=== PATIENT | male | born 1950 | race Caucasian/White ===

== ENCOUNTER 2021-10-27 11:34 | Outpatient (CLI) | payer MEDICARE, MEDICAID, SELFPAY ==
--- NOTE | 2021-10-27 11:15 | DI.RAD_ITS ---
Exam(s) XR SHOULDER LT COMPLETE 2+V EXAM: XR SHOULDER LT COMPLETE 2+V CLINICAL HISTORY: LEFT SHOULDER PAIN. TECHNIQUE: 2D digital imaging was performed of the left shoulder. Two images were obtained. AP and axillary views were obtained. COMPARISON: No exams were available for comparison FINDINGS: BONES: No acute fracture is present. No bony destructive lesion is seen. JOINTS: No dislocation present. There are mild degenerative changes at the acromioclavicular joint. SOFT TISSUE: Normal. IMPRESSION: Degenerative changes in the shoulder. DATA REPOSITORY: RADIATION DOSE DELIVERED:
--- NOTE | 2021-10-27 11:15 | DI.RAD_ITS ---
Exam(s) XR SHOULDER RT COMPLETE 2+V EXAM: XR SHOULDER RT COMPLETE 2+V CLINICAL HISTORY: RIGHT SHOULDER PAIN. TECHNIQUE: 2D digital imaging was performed of the right shoulder. Two images were obtained. AP an d axillary views were obtained. COMPARISON: No exams were available for comparison FINDINGS: BONES: No acute fracture is present. No bony destructive lesion is seen. JOINTS: No dislocation present. Mild to moderate degenerative changes are seen at the AC joint. Ther e is mild spurring at the inferior aspect of the glenoid. SOFT TISSUE: Normal. IMPRESSION: Degenerative changes of the shoulder. DATA REPOSITORY: RADIATION DOSE DELIVERED:
== END 2021-10-27 11:35 | disposition home or self-care (01) ==
LOC: DIORS 11:35
PROVIDERS: PCP Family Medicine; Visit Provider Student in an Organized Health Care Education/Training Program
DX: S46.011A Strain of muscle(s) and tendon(s) of the rotator cuff of right shoulder, initial encounter; X58.XXXA Exposure to other specified factors, initial encounter; M75.51 Bursitis of right shoulder; M75.21 Bicipital tendinitis, right shoulder
CPT/HCPCS: 99203; 99204; 73030

== ENCOUNTER → 2021-11-18 00:45 | Outpatient (CLI) | payer MEDICARE, MEDICAID, SELFPAY ==
--- NOTE | 2021-11-18 07:00 | DI.MRI_ITS ---
Exam(s) MR UPPER JOINT RT WO EXAM: MR UPPER JOINT RT WO CLINICAL HISTORY: PAIN,traumatic tear rt rotator cuff, [id number]. TECHNIQUE: Multiplanar multisequence MRI was performed. COMPARISON: Plain films 27 October 2021 FINDINGS: Bones: There is no fracture or contusion pattern. The acromioclavicular joint shows spurring and fluid with apparent impingement on the supraspinatus muscle tendon junction. There is a small amount of fluid i n the subacromial subdeltoid bursa. Minimal fluid in the subcoracoid bursa. Rotator Cuff: The supraspinatus tendon shows high signal distally consistent with a partial tear. The infraspinatu s tendon appears intact. The subscapularis and teres minor are normal. Is no significant muscle atro phy. Labrum and biceps anchor: The biceps tendon is located. The anchor is well maintained. The labrum is grossly normal.. IMPRESSION: Degenerative changes of the AC joint with apparent impingement. Partial tear of the supraspinatus te ndon. DATA REPOSITORY:
== END ==
PROVIDERS: PCP Family Medicine; Visit Provider Student in an Organized Health Care Education/Training Program
DX: S46.011A Strain of muscle(s) and tendon(s) of the rotator cuff of right shoulder, initial encounter (principal); M19.011 Primary osteoarthritis, right shoulder; X58.XXXA Exposure to other specified factors, initial encounter
CPT/HCPCS: 73221

== ENCOUNTER → 2021-11-24 10:52 | Outpatient (BNVA) | payer MEDICARE, MEDICAID, SELFPAY | PROVIDERS: PCP Family Medicine; Referring Provider Family Medicine; Visit Provider Student in an Organized Health Care Education/Training Program | DX: M75.21 Bicipital tendinitis, right shoulder (principal) | CPT/HCPCS: 20610; 99214; J1030 ==

== ENCOUNTER 2022-03-02 16:07 | Outpatient (REF) | payer MEDICARE, MEDICAID, SELFPAY | END 2022-03-02 16:08 | disposition home or self-care (01) | LOC: LBN 16:07 | PROVIDERS: PCP Family Medicine; Visit Provider Family Medicine | DX: R30.0 Dysuria (principal) | CPT/HCPCS: 87086 ==

== ENCOUNTER → 2022-03-09 02:37 | Outpatient (CLI) | payer MEDICARE, MEDICAID, SELFPAY ==
--- NOTE | 2022-03-09 07:45 | DI.US_ITS ---
Exam(s) US HERNIA EXAM: US HERNIA CLINICAL HISTORY: RLQ pain, ? hernia, r10.9. TECHNIQUE: Ultrasound was performed using standard protocol. COMPARISON: No exams were available for comparison FINDINGS: Sonographic assessment utilizing grayscale and color Doppler imaging was performed and targeted to th e area of clinical concern. There does appear to be a small abdominal wall hernia. A CT scan may be considered for further evalu ation. IMPRESSION: DATA REPOSITORY:
== END ==
PROVIDERS: PCP Family Medicine; Visit Provider Family Medicine
DX: R10.9 Unspecified abdominal pain (principal); R93.5 Abnormal findings on diagnostic imaging of other abdominal regions, including retroperitoneum
CPT/HCPCS: 76857

== ENCOUNTER → 2022-04-05 12:51 | Outpatient (BNVA) | payer MEDICARE, MEDICAID, SELFPAY | PROVIDERS: PCP Family Medicine; Referring Provider Family Medicine; Visit Provider Surgery | DX: K43.9 Ventral hernia without obstruction or gangrene (principal) | CPT/HCPCS: 99214 ==

== ENCOUNTER → 2022-04-09 01:01 | Outpatient (CLI) | payer MEDICARE, MEDICAID, SELFPAY ==
--- OUTSIDE RECORDS SUMMARY | 2022-04-09 01:03 | XMS_ITS | CCD ---
:1950 Author Care Team Providers Name Role Phone MAMTA MANCERA Attending Physician Unavailable MAMTA MANCERA Rounding (Secondary) Physician Unavailab le Vital Signs Unknown or Not Available. Allergies Allergy Code Allergy Type Reaction Status DOXYCYCLINE 3640 Drug allergy ITCHING Active NITROSTAT 20240606 Drug allergy SEVERE GLASS Active DEXILANT 197405 Drug allergy NAUSEA; INC STOMACH Active ACID PRIMIDONE 8691 Drug allergy SEVERE DIARRHEA Active HIBICLENS 304014 Drug allergy THROAT CLOSES Active YELLOW JACKETS {Clinical 0 Allergy to substance ARMS SWE LL Active monitoring unavailable} CIPROFLOXACIN 2551 Drug allergy DIARRHEA; C DIFF Active GABAPENTIN 45451 Drug allergy SHAKING, CONFUSION Active BACTRIM 387721 Drug allergy NAUSEA/VOMITING; Active Diarrhea OMEPRAZOLE 7646 Drug allergy ACID REFLUX Active MYRBETRIQ 5012748 Drug allergy ELEVATED BP Active SINEQUAN {Clinical 0 Drug allergy TONGUE SWELLING Active monitoring unavailable} PCN (penicillin) 0 Drug allergy ANAL SWELLING, Active RECEIVED CEFAZOLIN 01/17 DOXEPIN 3638 Drug allergy SWELLING; SWOLLEN Active TONGUE THORAZINE {Clinical 0 Drug allergy SWELLING; TONGUE Act arya monitoring unavailable} ROLLS BACK LIKE T RYING TO SWALLOW CHLORHEXIDINE 2358 Drug allergy Anaphylaxis Active ANDROGEL 025009 Drug allergy SKIN BURNING; Rash Active CHLORINE 5246793 Drug allergy Anaphylaxis Active FLONASE 72317 Drug allergy SORE THROAT Active Procedures Unknown or Not Available. History of Immunizations Unknown or Not Available. Problems Unknown or Not Available. Results Unknown or Not Available. Active Medications Medication Code Dose Units Frequency Route Modification Start Date/Time Act Total 83791234556 1 SPRAY 1 SPRAY 5 X OROMUCOSAL Care Dry DAILY 08:19 Mouth 0.02% NEEDED Oromucosal Solution Prescription Detail 1 SPRAY OROMUCOSAL 1 SPRAY 5 X DAILY NEEDED Artificial Tears 330762 1 DROP NEEDED DAILY OPTHALMIC 11/17/2018 08:19 1.4% Ophthalmic Solution Prescription Detail 1 DROP OPTHALMIC NEEDED DAILY Cephalexin 500MG 120000 1000 MILLIGRAMS TWICE A DAY ORAL 11/17/2018 08:19 Oral Capsule Prescription Detail TAKE 1000 MILLIGRAMS ORAL TW ICE A DAY clonazePAM 0.5MG 687468 0.5 MILLIGRAMS NEEDED AT ORAL 11/17/2018 08:19 Oral Tablet BEDTIME Prescription Detail TAKE 0.5 MILLIGRAMS ORAL NEEDED AT BEDTIME Finasteride 5MG Oral Tablet 778598 5 MILLIGRAMS DAILY ORAL 11/17/2018 08:19 Prescription Detail TAKE 5 MILLIGRAMS ORAL DAILY Lexapro 20MG Oral 643557 20 MILLIGRAMS EVERY EVENING ORAL 11/17/2018 08:19 Tablet Prescription Detail TAKE 20 MILLIGRAMS ORAL EVER Y EVENING traZODone hydrochloride 624467 25 MILLIGRAMS DAILY ORAL 11/17/2018 08:19 50MG Oral Tablet Prescription Detail TAKE 25 MILLIGRAMS ORAL STEPHEN Y Vitamin B Complex 06540603434 1 TABLET TWICE A DAY ORAL 11/17/2018 08:19 Oral Tablet Prescription Detail TAKE 1 TABLET ORAL TWICE A D AY Vitamin D 5000 IU Oral 933559 6959 IU EVERY EVENING ORAL 11/17/2018 08:19 Tablet Prescription Detail TAKE 5000 IU ORAL EVERY EVEN ING Vitamin D 5000 IU Oral Tablet 181739 49532 IU DAILY ORAL 11/17/2018 08:19 Prescription Detail TAKE 43467 IU ORAL DAILY Calcium/Magnesium/Zinc 1000 90531411501 1 EACH TWICE A DAY ORAL 01/20/2018 MG-500 MG-50 MG Oral Tablet 11:44 Prescription Detail TAKE 1 EACH ORAL TWICE A DAY SUMAtriptan Succinate 416467 25 MILLIGRAMS NEEDED ORAL 01/20/2018 11:44 25MG Oral Tablet Prescription Detail TAKE 25 MILLIGRAMS ORAL N EEDED Zinc 50 MG Oral Tablet 47543721910 50 MG DAILY ORAL 01/20/2018 11:44 Prescription Detail TAKE 50 MG ORAL DAILY Medications Administered During Visit Unknown or Not Available. 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 Discharge Instructions You were admitted to [facility] on 03/30/2022 14:13 with a principal diagnosis of Lesion of plantar nerve, right lower limb You were discharged from [facility] on 03/30/2022 00:00 Should you have any questions prior to d ischarge, please contact a member of your healthcare team. If you have left the ho spital and have any questions, please contact your primary care physician. Chief Complaint and Reason For Visit Unknown or Not Available. Function Status Unknown or Not Available. Plan of Care Unknown or Not Available. Referral/Transition of Care Unknown or Not Available.
--- OUTSIDE RECORDS SUMMARY | 2022-04-09 01:03 | XMS_ITS | CCD ---
:1950 Author Care Team Providers Name Role Phone SHAYNE AYERS Attending Physician Unavailable SHAYNE AYERS Rounding (Secondary) Physician Unavailab le Vital Signs Unknown or Not Available. Allergies Allergy Code Allergy Type Reaction Status DOXYCYCLINE 3640 Drug allergy ITCHING Active NITROSTAT 20240606 Drug allergy SEVERE GLASS Active DEXILANT 529336 Drug allergy NAUSEA; INC STOMACH Active ACID PRIMIDONE 8691 Drug allergy SEVERE DIARRHEA Active HIBICLENS 738614 Drug allergy THROAT CLOSES Active YELLOW JACKETS {Clinical 0 Allergy to substance ARMS SWE LL Active monitoring unavailable} CIPROFLOXACIN 2551 Drug allergy DIARRHEA; C DIFF Active GABAPENTIN 92329 Drug allergy SHAKING, CONFUSION Active BACTRIM 800787 Drug allergy NAUSEA/VOMITING; Active Diarrhea OMEPRAZOLE 7646 Drug allergy ACID REFLUX Active MYRBETRIQ 1418386 Drug allergy ELEVATED BP Active SINEQUAN {Clinical 0 Drug allergy TONGUE SWELLING Active monitoring unavailable} PCN (penicillin) 0 Drug allergy ANAL SWELLING, Active RECEIVED CEFAZOLIN 01/17 DOXEPIN 3638 Drug allergy SWELLING; SWOLLEN Active TONGUE THORAZINE {Clinical 0 Drug allergy SWELLING; TONGUE Act arya monitoring unavailable} ROLLS BACK LIKE T RYING TO SWALLOW CHLORHEXIDINE 2358 Drug allergy Anaphylaxis Active ANDROGEL 332578 Drug allergy SKIN BURNING; Rash Active CHLORINE 1489266 Drug allergy Anaphylaxis Active FLONASE 15016 Drug allergy SORE THROAT Active Procedures Unknown or Not Available. History of Immunizations Unknown or Not Available. Problems Unknown or Not Available. Results Unknown or Not Available. Active Medications Medication Code Dose Units Frequency Route Modification Start Date/Time Act Total 64825194430 1 SPRAY 1 SPRAY 5 X OROMUCOSAL Care Dry DAILY 08:19 Mouth 0.02% NEEDED Oromucosal Solution Prescription Detail 1 SPRAY OROMUCOSAL 1 SPRAY 5 X DAILY NEEDED Artificial Tears 366192 1 DROP NEEDED DAILY OPTHALMIC 11/17/2018 08:19 1.4% Ophthalmic Solution Prescription Detail 1 DROP OPTHALMIC NEEDED DAILY Cephalexin 500MG 178000 9635 MILLIGRAMS TWICE A DAY ORAL 11/17/2018 08:19 Oral Capsule Prescription Detail TAKE 1000 MILLIGRAMS ORAL TW ICE A DAY clonazePAM 0.5MG 825184 0.5 MILLIGRAMS NEEDED AT ORAL 11/17/2018 08:19 Oral Tablet BEDTIME Prescription Detail TAKE 0.5 MILLIGRAMS ORAL NEEDED AT BEDTIME Finasteride 5MG Oral Tablet 577597 5 MILLIGRAMS DAILY ORAL 11/17/2018 08:19 Prescription Detail TAKE 5 MILLIGRAMS ORAL DAILY Lexapro 20MG Oral 560143 20 MILLIGRAMS EVERY EVENING ORAL 11/17/2018 08:19 Tablet Prescription Detail TAKE 20 MILLIGRAMS ORAL EVER Y EVENING traZODone hydrochloride 321867 25 MILLIGRAMS DAILY ORAL 11/17/2018 08:19 50MG Oral Tablet Prescription Detail TAKE 25 MILLIGRAMS ORAL STEPHEN Y Vitamin B Complex 55187634188 1 TABLET TWICE A DAY ORAL 11/17/2018 08:19 Oral Tablet Prescription Detail TAKE 1 TABLET ORAL TWICE A D AY Vitamin D 5000 IU Oral 862893 8747 IU EVERY EVENING ORAL 11/17/2018 08:19 Tablet Prescription Detail TAKE 5000 IU ORAL EVERY EVEN ING Vitamin D 5000 IU Oral Tablet 518767 65240 IU DAILY ORAL 11/17/2018 08:19 Prescription Detail TAKE 91687 IU ORAL DAILY Calcium/Magnesium/Zinc 1000 93455395616 1 EACH TWICE A DAY ORAL 01/20/2018 MG-500 MG-50 MG Oral Tablet 11:44 Prescription Detail TAKE 1 EACH ORAL TWICE A DAY SUMAtriptan Succinate 545653 25 MILLIGRAMS NEEDED ORAL 01/20/2018 11:44 25MG Oral Tablet Prescription Detail TAKE 25 MILLIGRAMS ORAL N EEDED Zinc 50 MG Oral Tablet 20175152165 50 MG DAILY ORAL 01/20/2018 11:44 Prescription Detail TAKE 50 MG ORAL DAILY Medications Administered During Visit Unknown or Not Available. Encounters Encounter Diagnosis Diagnosis Code Start Date Pain in right foot [id number] 03/30/2021 Social History Smoking Status Code Start Date End Date Never smoker [id number] Patient Decision Aids Unknown or Not Available. Discharge Instructions You were admitted to [facility] on 03/30/2021 08:16 with a principal diagnosis of Pain in right foot You were discharged from [facility] on 03/30/2021 00:00 Should you have any questions prior [...]
--- OUTSIDE RECORDS SUMMARY | 2022-04-09 01:04 | XMS_ITS | CCD ---
:1950 Author Care Team Providers Name Role Phone JEFMADIE Attending Physician Unavailable Vital Signs Unknown or Not Available. Allergies Allergy Code Allergy Type Reaction Status DOXYCYCLINE 3640 Drug allergy ITCHING Active NITROSTAT 20240606 Drug allergy SEVERE GLASS Active DEXILANT 381917 Drug allergy NAUSEA; INC STOMACH Active ACID PRIMIDONE 8691 Drug allergy SEVERE DIARRHEA Active HIBICLENS 253913 Drug allergy THROAT CLOSES Active YELLOW JACKETS {Clinical 0 Allergy to substance ARMS SWE LL Active monitoring unavailable} CIPROFLOXACIN 2551 Drug allergy DIARRHEA; C DIFF Active GABAPENTIN 62885 Drug allergy SHAKING, CONFUSION Active BACTRIM 027643 Drug allergy NAUSEA/VOMITING; Active Diarrhea OMEPRAZOLE 7646 Drug allergy ACID REFLUX Active MYRBETRIQ 4386298 Drug allergy ELEVATED BP Active SINEQUAN {Clinical 0 Drug allergy TONGUE SWELLING Active monitoring unavailable} PCN (penicillin) 0 Drug allergy ANAL SWELLING, Active RECEIVED CEFAZOLIN 01/17 DOXEPIN 3638 Drug allergy SWELLING; SWOLLEN Active TONGUE THORAZINE {Clinical 0 Drug allergy SWELLING; TONGUE Act arya monitoring unavailable} ROLLS BACK LIKE T RYING TO SWALLOW CHLORHEXIDINE 2358 Drug allergy Anaphylaxis Active ANDROGEL 185665 Drug allergy SKIN BURNING; Rash Active CHLORINE 9770200 Drug allergy Anaphylaxis Active FLONASE 61583 Drug allergy SORE THROAT Active Procedures Unknown or Not Available. History of Immunizations Unknown or Not Available. Problems Unknown or Not Available. Results Unknown or Not Available. Active Medications Medication Code Dose Units Frequency Route Modification Start Date/Time Act Total 33835609963 1 SPRAY 1 SPRAY 5 X OROMUCOSAL Care Dry DAILY 08:19 Mouth 0.02% NEEDED Oromucosal Solution Prescription Detail 1 SPRAY OROMUCOSAL 1 SPRAY 5 X DAILY NEEDED Artificial Tears 344663 1 DROP NEEDED DAILY OPTHALMIC 11/17/2018 08:19 1.4% Ophthalmic Solution Prescription Detail 1 DROP OPTHALMIC NEEDED DAILY Cephalexin 500MG 456311 6774 MILLIGRAMS TWICE A DAY ORAL 11/17/2018 08:19 Oral Capsule Prescription Detail TAKE 1000 MILLIGRAMS ORAL TW ICE A DAY clonazePAM 0.5MG 558225 0.5 MILLIGRAMS NEEDED AT ORAL 11/17/2018 08:19 Oral Tablet BEDTIME Prescription Detail TAKE 0.5 MILLIGRAMS ORAL NEEDED AT BEDTIME Finasteride 5MG Oral Tablet 716076 5 MILLIGRAMS DAILY ORAL 11/17/2018 08:19 Prescription Detail TAKE 5 MILLIGRAMS ORAL DAILY Lexapro 20MG Oral 528581 20 MILLIGRAMS EVERY EVENING ORAL 11/17/2018 08:19 Tablet Prescription Detail TAKE 20 MILLIGRAMS ORAL EVER Y EVENING traZODone hydrochloride 270345 25 MILLIGRAMS DAILY ORAL 11/17/2018 08:19 50MG Oral Tablet Prescription Detail TAKE 25 MILLIGRAMS ORAL STEPHEN Y Vitamin B Complex 03972530947 1 TABLET TWICE A DAY ORAL 11/17/2018 08:19 Oral Tablet Prescription Detail TAKE 1 TABLET ORAL TWICE A D AY Vitamin D 5000 IU Oral 602664 2897 IU EVERY EVENING ORAL 11/17/2018 08:19 Tablet Prescription Detail TAKE 5000 IU ORAL EVERY EVEN ING Vitamin D 5000 IU Oral Tablet 311054 25687 IU DAILY ORAL 11/17/2018 08:19 Prescription Detail TAKE 44236 IU ORAL DAILY Calcium/Magnesium/Zinc 1000 41352228479 1 EACH TWICE A DAY ORAL 01/20/2018 MG-500 MG-50 MG Oral Tablet 11:44 Prescription Detail TAKE 1 EACH ORAL TWICE A DAY SUMAtriptan Succinate 610356 25 MILLIGRAMS NEEDED ORAL 01/20/2018 11:44 25MG Oral Tablet Prescription Detail TAKE 25 MILLIGRAMS ORAL N EEDED Zinc 50 MG Oral Tablet 85043716787 50 MG DAILY ORAL 01/20/2018 11:44 Prescription Detail TAKE 50 MG ORAL DAILY Medications Administered During Visit Unknown or Not Available. Encounters Encounter Diagnosis Diagnosis Code Start Date Pain in thoracic spine [id number] 06/11/2021 Social History Smoking Status Code Start Date End Date Never smoker [id number] Patient Decision Aids Unknown or Not Available. Discharge Instructions You were admitted to [facility] on 06/11/2021 11:31 with a principal diagnosis of Pain in thoracic spine You were discharged from [facility] on 06/11/2021 11:31 Should you have any questions prior to d ischarge, please contact a member of your healthcare team. If you have left the spital and have any questions, please contact your primary care physician. Chief Complaint and Reason For Visit Unknown or Not Available. Function Status Unknown or Not Available. Plan of Care Unknown or Not Available. Referral/Transition of Care Unknown or Not Available.
--- OUTSIDE RECORDS SUMMARY | 2022-04-09 01:04 | XMS_ITS | CCD ---
:1950 Author Care Team Providers Name Role Phone MAMTA MANCERA Attending Physician Unavailable MAMTA MANCERA Rounding (Secondary) Physician Unavailab le Vital Signs Unknown or Not Available. Allergies Allergy Code Allergy Type Reaction Status DOXYCYCLINE 3640 Drug allergy ITCHING Active NITROSTAT 20240606 Drug allergy SEVERE GLASS Active DEXILANT 970479 Drug allergy NAUSEA; INC STOMACH Active ACID PRIMIDONE 8691 Drug allergy SEVERE DIARRHEA Active HIBICLENS 076124 Drug allergy THROAT CLOSES Active YELLOW JACKETS {Clinical 0 Allergy to substance ARMS SWE LL Active monitoring unavailable} CIPROFLOXACIN 2551 Drug allergy DIARRHEA; C DIFF Active GABAPENTIN 13439 Drug allergy SHAKING, CONFUSION Active BACTRIM 882799 Drug allergy NAUSEA/VOMITING; Active Diarrhea OMEPRAZOLE 7646 Drug allergy ACID REFLUX Active MYRBETRIQ 0208605 Drug allergy ELEVATED BP Active SINEQUAN {Clinical 0 Drug allergy TONGUE SWELLING Active monitoring unavailable} PCN (penicillin) 0 Drug allergy ANAL SWELLING, Active RECEIVED CEFAZOLIN 01/17 DOXEPIN 3638 Drug allergy SWELLING; SWOLLEN Active TONGUE THORAZINE {Clinical 0 Drug allergy SWELLING; TONGUE Act arya monitoring unavailable} ROLLS BACK LIKE T RYING TO SWALLOW CHLORHEXIDINE 2358 Drug allergy Anaphylaxis Active ANDROGEL 869549 Drug allergy SKIN BURNING; Rash Active CHLORINE 1951454 Drug allergy Anaphylaxis Active FLONASE 24725 Drug allergy SORE THROAT Active Procedures Unknown or Not Available. History of Immunizations Unknown or Not Available. Problems Unknown or Not Available. Results Unknown or Not Available. Active Medications Medication Code Dose Units Frequency Route Modification Start Date/Time Act Total 01329687721 1 SPRAY 1 SPRAY 5 X OROMUCOSAL Care Dry DAILY 08:19 Mouth 0.02% NEEDED Oromucosal Solution Prescription Detail 1 SPRAY OROMUCOSAL 1 SPRAY 5 X DAILY NEEDED Artificial Tears 948501 1 DROP NEEDED DAILY OPTHALMIC 11/17/2018 08:19 1.4% Ophthalmic Solution Prescription Detail 1 DROP OPTHALMIC NEEDED DAILY Cephalexin 500MG 595175 1977 MILLIGRAMS TWICE A DAY ORAL 11/17/2018 08:19 Oral Capsule Prescription Detail TAKE 1000 MILLIGRAMS ORAL TW ICE A DAY clonazePAM 0.5MG 558200 0.5 MILLIGRAMS NEEDED AT ORAL 11/17/2018 08:19 Oral Tablet BEDTIME Prescription Detail TAKE 0.5 MILLIGRAMS ORAL NEEDED AT BEDTIME Finasteride 5MG Oral Tablet 689538 5 MILLIGRAMS DAILY ORAL 11/17/2018 08:19 Prescription Detail TAKE 5 MILLIGRAMS ORAL DAILY Lexapro 20MG Oral 104377 20 MILLIGRAMS EVERY EVENING ORAL 11/17/2018 08:19 Tablet Prescription Detail TAKE 20 MILLIGRAMS ORAL EVER Y EVENING traZODone hydrochloride 308709 25 MILLIGRAMS DAILY ORAL 11/17/2018 08:19 50MG Oral Tablet Prescription Detail TAKE 25 MILLIGRAMS ORAL STEPHEN Y Vitamin B Complex 75903588087 1 TABLET TWICE A DAY ORAL 11/17/2018 08:19 Oral Tablet Prescription Detail TAKE 1 TABLET ORAL TWICE A D AY Vitamin D 5000 IU Oral 032068 7084 IU EVERY EVENING ORAL 11/17/2018 08:19 Tablet Prescription Detail TAKE 5000 IU ORAL EVERY EVEN ING Vitamin D 5000 IU Oral Tablet 087503 54818 IU DAILY ORAL 11/17/2018 08:19 Prescription Detail TAKE 25530 IU ORAL DAILY Calcium/Magnesium/Zinc 1000 39735567059 1 EACH TWICE A DAY ORAL 01/20/2018 MG-500 MG-50 MG Oral Tablet 11:44 Prescription Detail TAKE 1 EACH ORAL TWICE A DAY SUMAtriptan Succinate 171261 25 MILLIGRAMS NEEDED ORAL 01/20/2018 11:44 25MG Oral Tablet Prescription Detail TAKE 25 MILLIGRAMS ORAL N EEDED Zinc 50 MG Oral Tablet 97868130817 50 MG DAILY ORAL 01/20/2018 11:44 Prescription Detail TAKE 50 MG ORAL DAILY Medications Administered During Visit Unknown or Not Available. 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 Discharge Instructions You were admitted to [facility] on 10/26/2021 14:39 with a principal diagnosis of Lesion of plantar nerve, right lower limb You were discharged from [facility] on 10/26/2021 00:00 Should you have any questions prior [...]
--- OUTSIDE RECORDS SUMMARY | 2022-04-09 01:04 | XMS_ITS | CCD ---
:1950 Author Care Team Providers Name Role Phone MAMTA MANCERA Attending Physician Unavailable MAMTA MANCERA Rounding (Secondary) Physician Unavailab le Vital Signs Unknown or Not Available. Allergies Allergy Code Allergy Type Reaction Status DOXYCYCLINE 3640 Drug allergy ITCHING Active NITROSTAT [id number] Drug allergy SEVERE GLASS Active DEXILANT 251158 Drug allergy NAUSEA; INC STOMACH Active ACID PRIMIDONE 8691 Drug allergy SEVERE DIARRHEA Active HIBICLENS 258044 Drug allergy THROAT CLOSES Active YELLOW JACKETS {Clinical 0 Allergy to substance ARMS SWE LL Active monitoring unavailable} CIPROFLOXACIN 2551 Drug allergy DIARRHEA; C DIFF Active GABAPENTIN 82474 Drug allergy SHAKING, CONFUSION Active BACTRIM 778975 Drug allergy NAUSEA/VOMITING; Active Diarrhea OMEPRAZOLE 7646 Drug allergy ACID REFLUX Active MYRBETRIQ 6887066 Drug allergy ELEVATED BP Active SINEQUAN {Clinical 0 Drug allergy TONGUE SWELLING Active monitoring unavailable} PCN (penicillin) 0 Drug allergy ANAL SWELLING, Active RECEIVED CEFAZOLIN 01/17 DOXEPIN 3638 Drug allergy SWELLING; SWOLLEN Active TONGUE THORAZINE {Clinical 0 Drug allergy SWELLING; TONGUE Act arya monitoring unavailable} ROLLS BACK LIKE T RYING TO SWALLOW CHLORHEXIDINE 2358 Drug allergy Anaphylaxis Active ANDROGEL 409722 Drug allergy SKIN BURNING; Rash Active CHLORINE 8724367 Drug allergy Anaphylaxis Active FLONASE 95505 Drug allergy SORE THROAT Active Procedures Unknown or Not Available. History of Immunizations Unknown or Not Available. Problems Unknown or Not Available. Results Unknown or Not Available. Active Medications Medication Code Dose Units Frequency Route Modification Start Date/Time Act Total [id number] 1 SPRAY 1 SPRAY 5 X OROMUCOSAL Care Dry DAILY 08:19 Mouth 0.02% NEEDED Oromucosal Solution Prescription Detail 1 SPRAY OROMUCOSAL 1 SPRAY 5 X DAILY NEEDED Artificial Tears 878775 1 DROP NEEDED DAILY OPTHALMIC 11/17/2018 08:19 1.4% Ophthalmic Solution Prescription Detail 1 DROP OPTHALMIC NEEDED DAILY Cephalexin 500MG 682749 3701 MILLIGRAMS TWICE A DAY ORAL 11/17/2018 08:19 Oral Capsule Prescription Detail TAKE 1000 MILLIGRAMS ORAL TW ICE A DAY clonazePAM 0.5MG 252017 0.5 MILLIGRAMS NEEDED AT ORAL 11/17/2018 08:19 Oral Tablet BEDTIME Prescription Detail TAKE 0.5 MILLIGRAMS ORAL NEEDED AT BEDTIME Finasteride 5MG Oral Tablet 102142 5 MILLIGRAMS DAILY ORAL 11/17/2018 08:19 Prescription Detail TAKE 5 MILLIGRAMS ORAL DAILY Lexapro 20MG Oral 283706 20 MILLIGRAMS EVERY EVENING ORAL 11/17/2018 08:19 Tablet Prescription Detail TAKE 20 MILLIGRAMS ORAL EVER Y EVENING traZODone hydrochloride 260930 25 MILLIGRAMS DAILY ORAL 11/17/2018 08:19 50MG Oral Tablet Prescription Detail TAKE 25 MILLIGRAMS ORAL STEPHEN Y Vitamin B Complex 67892972392 1 TABLET TWICE A DAY ORAL 11/17/2018 08:19 Oral Tablet Prescription Detail TAKE 1 TABLET ORAL TWICE A D AY Vitamin D 5000 IU Oral 894948 7239 IU EVERY EVENING ORAL 11/17/2018 08:19 Tablet Prescription Detail TAKE 5000 IU ORAL EVERY EVEN ING Vitamin D 5000 IU Oral Tablet 000537 13799 IU DAILY ORAL 11/17/2018 08:19 Prescription Detail TAKE 20401 IU ORAL DAILY Calcium/Magnesium/Zinc 1000 52060812852 1 EACH TWICE A DAY ORAL 01/20/2018 MG-500 MG-50 MG Oral Tablet 11:44 Prescription Detail TAKE 1 EACH ORAL TWICE A DAY SUMAtriptan Succinate 146399 25 MILLIGRAMS NEEDED ORAL 01/20/2018 11:44 25MG Oral Tablet Prescription Detail TAKE 25 MILLIGRAMS ORAL N EEDED Zinc 50 MG Oral Tablet 36950010528 50 MG DAILY ORAL 01/20/2018 11:44 Prescription Detail TAKE 50 MG ORAL DAILY Medications Administered During Visit Unknown or Not Available. Encounters Encounter Diagnosis Diagnosis Code Start Date Refusal of treatment by patient [id number] 11/24/19 22 Social History Smoking Status Code Start Date End Date Never smoker [id number] Patient Decision Aids Unknown or Not Available. Discharge Instructions You were admitted to [facility] on 11/23/2021 09:22 with a principal diagnosis of Procedure and treatment not carried o mn because of patient's decision for other reasons You were discharged from [facility] on 11/23/2021 10:23 Should you have any questions prior to [...]
[2022-04-09 09:33] LABS: Anion Gap 7.7 mmol/L (3-11); BUN 19 mg/dL (7-18); CO2 28.3 mmol/L (21.0-32.0); CREATININE 0.9 mg/dL (0.70-1.30); Calcium 9.1 mg/dL (8.5-10.1); Chloride 103 mmol/L (98-107); Estimated GFR 91.88 (mL/min/1.73m2); Glucose 93 mg/dL (74-106); Sodium 139 mmol/L (136-145)
--- NOTE | 2022-04-09 10:17 | DI.CT_ITS ---
Exam(s) CT ABDOMEN PELVIS W EXAM: CT ABDOMEN PELVIS W CLINICAL HISTORY: ABD WALL hernia, pre-operative planning,K43.9 TECHNIQUE: Imaging Protocol: Axial computed tomography images with coronal and sagittal reformatted images were created and reviewed CONTRAST MATERIAL: Intravenous: Omnipaque 350 Contrast volume:100 mL Oral: Yes COMPARISON: US US HERNIA from 03/09/2022 FINDINGS: ABDOMEN: Lung Bases: Normal where visualized. Liver: Normal density. Tiny hypodensities are scattered throughout the liver. They are too small for further characterization but are most suggestive of a cyst. No suspicious hepatic masses are seen. Portal, Superior Mesenteric, and Splenic Veins: Unremarkable. Gallbladder and Biliary Tract: No radiodense calculus or dilation. Pancreas: Normal density, no abnormal calcifications or inflammatory process. Spleen: Normal. Adrenals: No masses seen. Kidneys: Normal size, contour and axis. No radiodense stones or obstructive uropathy. There are sever al tiny hypodensities in the renal cortices bilaterally. They are too small for further characteriza tion but likely reflect small cysts. Abdominal Aorta: Abdominal portion non-dilated. Atherosclerosis is present. Bowel: No obstruction or bowel wall thickening. There is no evidence of appendicitis. There is diver ticulosis seen in the colon, but no evidence of acute diverticulitis. Postsurgical changes are seen at the gastroesophageal junction. Peritoneal Cavity: No ascites, collection or mesenteric inflammatory response. No free air. Lymph Nodes: Within normal limits. Bones: Within normal limits for the patient's age. Soft Tissues: No definite anterior abdominal wall hernia is appreciated. Postsurgical changes are see n in the anterior abdominal wall. PELVIS: Bladder: Symmetric distention, no gross wall thickening. There are calcifications seen in the depende nt portion of the urinary bladder suspicious for bladder stone. Reproductive Organs: The prostate gland is enlarged and impinges upon the base of the urinary bladder . There is a nodular 1.3 x 0.9 cm protrusion arising from the right lateral aspect of the superior bl adder. A neoplasm cannot be excluded. Lymph Nodes: Within normal limits. Bones: Within normal limits for the patient's age. IMPRESSION: 1. No definite anterior abdominal wall hernia. Postsurgical changes in the anterior abdominal wall. 2. Enlarged prostate gland. There is a 1.3 x 0.9 cm protrusion from the superior and lateral aspect o f the prostate gland on the right. And neoplasm cannot be excluded. RADIATION DOSE DELIVERED: 964.21mGy.cm Total DLP DATA REPOSITORY: All CT scans at this facility are submitted to the National Radiology Data Registry (NRDR) Dose Index Registry (DIR) with the [employer] (A[employer]). RADIATION OPTIMIZATION: All CT scans at this facility use at least one of these dose optimization te chniques: automated exposure control; mA and/or kV adjustment per patient size (includes targeted exa ms where dose is matched to clinical indication); or iterative reconstruction.
[2022-04-09] MEDS: Omnipaque 350 MG/ML 100 ML BTL IJ (10:37)
== END ==
PROVIDERS: PCP Family Medicine; Visit Provider Surgery
DX: K43.9 Ventral hernia without obstruction or gangrene (principal)
CPT/HCPCS: 80048; 74177; J3490

== ENCOUNTER → 2022-12-24 00:20 | Outpatient (CLI) | payer MEDICARE, MEDICAID, SELFPAY ==
--- NOTE | 2022-12-24 | DI.RAD_ITS ---
Exam(s) RF UPPER GI SERIES SINGLE EXAM: RF UPPER GI SERIES SINGLE CLINICAL HISTORY: VOICE HOARSENESS R49.0 TECHNIQUE: 2D and realtime digital imaging was performed. CONTRAST MATERIAL: Oral barium Oral water soluble contrast was administered. COMPARISON: No exams were available for comparison FINDINGS: Initial plain film of the abdomen reveals normal stool and air pattern. No abnormal calcifications ar e seen. There are surgical clips seen near the gastroesophageal junction. Esophagus: The esophagus is patent with no evidence for erosions, fold thickening, strictures, or ma sses. With regards to the motility, there is a normal primary stripping wave. There is no hiatal her silas or gastroesophageal reflux. Stomach: The stomach shows no gastric fold thickening, erosions, or masses. Duodenal Bulb: Shows no gastric fold thickening, erosions, or masses. IMPRESSION: Normal upper GI series. RADIATION DOSE DELIVERED: mary jane Griffin=86.9 mGy
[2022-12-24] MEDS: Barium Sulfate 60% W/V 355 ML BTL PO (11:55)
[2022-12-24] MEDS: Barium Sulfate 98% W/W 140 ML BTL PO (11:56)
[2022-12-24] MEDS: Simethicone/Sod Bicarb/Cit Ac, 4 gram PACKET 1 PACKET PO (11:57)
== END ==
PROVIDERS: Visit Provider Surgery
DX: R49.0 Dysphonia (principal)
CPT/HCPCS: 74240; J3490

== ENCOUNTER 2023-02-16 19:41 | Outpatient (REF) | payer MEDICARE, MEDICAID, SELFPAY ==
[2023-02-16 21:16] LABS: Calculated LDL 140 mg/dL (<100); Cholesterol 213 mg/dL (<200); HDL Cholesterol 55 mg/dL (40-60); TSH (W/Ref FT4) 1.38 uIU/mL (0.36-3.74); Triglyceride 91 mg/dL (<150); Vitamin B12 712 pg/mL (193-986)
[2023-02-16 21:56] LABS: Vitamin D 25 Total 50.5 ng/mL (30-100)
[2023-02-17 19:21] LABS: PSA, Screening 9.7 ng/mL (<=6.5)
== END 2023-02-16 19:42 | disposition home or self-care (01) ==
LOC: NCHCN 19:41
PROVIDERS: Visit Provider Nurse Practitioner Family
DX: F41.9 Anxiety disorder, unspecified (principal); Z12.5 Encounter for screening for malignant neoplasm of prostate; M54.9 Dorsalgia, unspecified; R53.83 Other fatigue; N40.0 Benign prostatic hyperplasia without lower urinary tract symptoms; F32.9 Major depressive disorder, single episode, unspecified; Z13.220 Encounter for screening for lipoid disorders
CPT/HCPCS: 80061; 82306; 84153; 82607; 84443